=== PATIENT | female | born 1985 | race American Indian/Alaskan Native ===

== ENCOUNTER 2017-06-29 13:25 | Emergency (ER) | payer SELFPAY ==
[2017-06-29 14:09] LABS: Basophils % (Auto) 0.7 % (0.0-1.8); Eosinophils % (Auto) 4.5 % (0.0-4.3); Hematocrit 40.1 % (30.3-42.9); Hemoglobin 12.5 gm/dl (10.1-14.3); Mean Corpuscular HGB Conc 31 % (30-34); Mean Corpuscular Volume 75 fl (79-97); Platelet Count 347 K/mm3 (140-440); Red Blood Count 5.32 M/mm3 (3.65-5.03); Red Cell Distribution Width 14.4 % (13.2-15.2); White Blood Count 8.1 K/mm3 (4.5-11.0)
[2017-06-29 14:11] LABS: Mean Corpuscular Hemoglobin 23 pg (28-32)
[2017-06-29 14:27] LABS: Bilirubin,Urine NEG (Negative); Blood,Urine LG (Negative); Ketones,Urine NEG (Negative); Leukocyte Esterase,Urine TR (Negative); Mucus,Urine FEW /HPF; Nitrite,Urine NEG (Negative); Protein,Urine <15 mg/dL mg/dL (Negative)
[2017-06-29 14:28] LABS: Anion Gap 17 mmol/L; BUN/Creatinine Ratio 14; Blood Urea Nitrogen 7 mg/dL (7-17); Calcium 9.2 mg/dL (8.4-10.2); Carbon Dioxide 25 mmol/L (22-30); Chloride 102.4 mmol/L (98-107); Glucose 81 mg/dL (65-100); Potassium 4.7 mmol/L (3.6-5.0); Sodium 140 mmol/L (137-145)
--- NOTE | 2017-06-30 01:46 | Emergency Department Report ---
ED Female HPI - General Chief complaint: Vaginal Bleeding Stated complaint: ABD PAIN Time Seen by Provider: 06/30/17 00:40 Source: patient Mode of arrival: Ambulatory Limitations: No Limitations - History of Present Illness Initial comments: 32 YO FEMALE WHO HAD IUD RING REMOVED IN AUGUST AND THEN BEGAN BLEEDING FOR TWO WEEKS. SHE BLED FOR 2 WEEKS AND THEN STOPPED FOR 2 WEEKS AND THIS PATTERN OF BLEEDING FOR 2 WEEKS AND STOPPING FOR 2 WEEKS LASTED UNTIL 3 MONTHS AGO WHEN SHE STARTED BLEEDING EVERY DAY. SHE IS HERE TODAY WITH C/O 3 MONTHS OF VAGINAL BLEEDING AND USING 6 PADS PER DAY.. SHE IS . Complaint: vaginal bleeding -: Gradual, year(s) (1) Quality: cramping Consistency: constant Improves with: none Worsens with: none Are you Now?: No - Related Data Sexually active: Yes Previous Rx's Medication Instructions Recorded Last Taken Type Acetaminophen/Codeine [Tylenol #3] 1 tab PO Q6H PRN #15 tab 12/16/14 Unknown Rx Cephalexin [Keflex] 250 mg PO Q6H #40 capsule 12/16/14 Unknown Rx Ibuprofen [Motrin] 800 mg PO Q8H PRN #30 tablet 12/16/14 Unknown Rx Allergies Allergy/AdvReac Type Severity Reaction Status Date / Time No Known Allergies Allergy Verified 12/16/14 13:23 ED Review of Systems ROS: Stated complaint: ABD PAIN Other details as noted in HPI Constitutional: denies: chills, fever Eyes: denies: eye pain, eye discharge, vision change ENT: denies: ear pain, throat pain Respiratory: denies: cough, shortness of breath, wheezing Cardiovascular: denies: chest pain, palpitations Endocrine: no symptoms reported Gastrointestinal: denies: abdominal pain, nausea, diarrhea Genitourinary: denies: urgency, dysuria, discharge Musculoskeletal: denies: back pain, joint swelling, arthralgia Skin: denies: rash, lesions Neurological: denies: headache, weakness, paresthesias Psychiatric: denies: anxiety, depression Hematological/Lymphatic: denies: easy bleeding, easy bruising ED Past Medical Hx - Past Medical History Previous Medical History?: Yes Additional medical history: ovarian cyst,IUD AND REMOVAL IUD, - Family History Family history: hypertension - Social History Smoking Status: Current Every Day Smoker Substance Use Type: None - Medications Home Medications: Home Medications Medication Instructions Recorded Confirmed Last Taken Type Acetaminophen/Codeine [Tylenol #3] 1 tab PO Q6H PRN #15 tab 12/16/14 Unknown Rx Cephalexin [Keflex] 250 mg PO Q6H #40 capsule 12/16/14 Unknown Rx Ibuprofen [Motrin] 800 mg PO Q8H PRN #30 tablet 12/16/14 Unknown Rx ED Physical Exam - General Limitations: No Limitations General appearance: alert, in no apparent distress - Head Head exam: Present: atraumatic, normocephalic - Eye Eye exam: Present: normal appearance, EOMI - ENT ENT exam: Present: mucous membranes moist - Neck Neck exam: Present: normal inspection, full ROM - Respiratory Respiratory exam: Present: normal lung sounds bilaterally. Absent: respiratory distress, wheezes, rales - Cardiovascular Cardiovascular Exam: Present: regular rate, normal rhythm. Absent: systolic murmur, diastolic murmur, rubs, gallop - GI/Abdominal GI/Abdominal exam: Present: soft, normal bowel sounds - Rectal Rectal exam: Present: deferred - External exam: Present: normal external exam, other (MALODOROUS) Speculum exam: Present: normal speculum exam, vaginal discharge, vaginal bleeding (SCANT,SCANT) Bi-manual exam: Present: uterine enlargement. Absent: cervical motion tendernes , adnexal tenderness, adnexal mass - Extremities Exam Extremities exam: Present: normal inspection, full ROM - Back Exam Back exam: Present: normal inspection, full ROM - Neurological Exam Neurological exam: Present: alert, oriented X3, CN II-XII intact - Psychiatric Psychiatric exam: Present: normal affect, normal mood - Skin Skin exam: Present: warm, dry, intact, normal color. Absent: rash ED Course Vital Signs 06/29/17 06/30/17 06/30/17 13:32 00:28 00:30 Temperature 99.2 F 97.9 F Pulse Rate 79 72 Respiratory 18 16 16 Rate Blood Pressure 155/110 Blood Pressure 147/101 [Left] O2 Sat by Pulse 99 100 98 Oximetry ED Medical Decision Making - Lab Data Result diagrams: 06/29/17 13:53 06/29/17 13:53 - Radiology Data Radiology results: report reviewed (US: NEGATIVE, NO FIBROIDS) - Medical Decision Making WILL HAVE HER F/U WITH VEGETABLE THINNER. NO VAGINAL HEMORRHAGE. PTS ACCOUNT OF THE EXTENT OF VAGINAL BLEEDING IS INACCURATE Critical care attestation.: If time is entered above; I have spent that time in minutes in the direct care of this critically ill patient, excluding procedure time. ED Disposition Clinical Impression: Dysfunctional uterine bleeding Disposition: TO HOME OR SELFCARE Is pt being admited?: No Does the pt Need Aspirin: No Condition: Stable Instructions: Dysfunctional Uterine Bleeding (ED) Additional Instructions: PLEASE FOLLOW UP WITH DR MCHUGH TO EVALUATE YOU FOR REASONS OF VAGINAL BLEEDING. RETURN TO ER IF BLEEDING INCREASES OTHER FOUNTAIN SEE DR MCHUGH OR YOUR PRIMARY CARE DOCTOR Referrals: PRIMARY CARE, [Primary Care Provider] - 3-5 Days MADONNA MCHUGH MD [Staff Physician] - 3-5 Days Time of Disposition: 03:26
--- NOTE | 2017-06-30 02:11 | Ultrasound Report ---
FINAL REPORT PROCEDURE: US PELVIC COMPLETE TECHNIQUE: Real-time transabdominal sonography in multiple planes of pelvis was performed with image documentation. This examination was performed without Doppler. Vascular abnormalities, including ovarian torsion, will not be detectable without Doppler evaluation. CPT 49094 HISTORY: pain,bleeding COMPARISON: No prior studies are available for comparison. FINDINGS: UTERUS Size: 9.4 x 4.4 x 5.4 cm. Endometrial thickness: 9.4 mm. Orientation: anteverted. Cervix: Normal. Fibroids/masses: None. RIGHT Ovary: 3.8 x 2.6 x 2.7 cm. Appearance: Normal. LEFT Ovary: 3.2 x 2.5 x 2.2 cm. Appearance: Normal. Pelvic fluid: None. Other: None. IMPRESSION: Normal Examination
[2017-06-30 04:08] VITALS: BP 128/90
== END 2017-06-30 04:08 | disposition home or self-care (01) ==
LOC: ED 13:25
DX: N93.8 Other specified abnormal uterine and vaginal bleeding (principal); F17.200 Nicotine dependence, unspecified, uncomplicated
CPT/HCPCS: 36415; 76856; 80048; 81001; 84702; 85025; 86850; 86900; 86901; 87210; 87591; 99284

== ENCOUNTER 2018-12-08 05:32 | Emergency (ER) | payer MEDICAID ==
[2018-12-08] MEDS ORDERED: TORADOL IM ONE (06:09)
[2018-12-08] MEDS ORDERED: DECADRON IM ONE (06:10)
--- NOTE | 2018-12-08 06:48 | Emergency Department Report ---
ED Back Pain/Injury HPI - General Chief Complaint: Extremity Injury, Lower Stated Complaint: BACK TO KNEE PAIN Time Seen by Provider: 12/08/18 06:05 Source: patient Limitations: No Limitations - History of Present Illness Initial Comments: Patient is a 33-year-old -[place] female with no past medical history who presents to the ED with complaint of acute onset persistent non-traumatic low back pain that radiates to the right hip and right thigh posteriorly for the last 3 days. Patient states that the pain is persistent and worse at rest. Patient denies fall, traumatic injury, heavy lifting, numbness and tingling or weakness of lower extremities bilaterally, urinary or bowel incontinence, saddle paresthesia, dizziness, nausea, vomiting, abdominal pain, hematuria, dysuria or urinary frequency and urgency and vaginal bleeding. MD Complaint: back pain -: Sudden, days(s) (3) Similar Symptoms Previously: No Place: home Radiation: buttocks, right leg Severity: severe Severity scale (0 -10): 8 Quality: sharp, aching Consistency: constant Improves With: none Worsens With: movement, walking Context: unknown, other (spontaneous) Associated Symptoms: difficulty walking. denies: confusion, weakness, chest pain, numbness, cough, difficulty urinating, diaphoresis, incontinence, fever/chills, constipation, loss of appetite, nausea/vomiting, seizure, shortness of breath, syncope Treatments Prior to Arrival: NSAIDS - Related Data Previous Rx's Medication Instructions Recorded Last Taken Type Acetaminophen/Codeine [Tylenol #3] 1 tab PO Q6H PRN #15 tab 12/16/14 Unknown Rx Ibuprofen [Motrin] 800 mg PO Q8H PRN #30 tablet 12/16/14 Unknown Rx cephALEXin [Keflex] 250 mg PO Q6H #40 capsule 12/16/14 Unknown Rx Baclofen 20 mg PO Q8H PRN #24 tablet 12/08/18 Unknown Rx Naproxen [Naprosyn] 500 mg PO Q12H #24 tablet 12/08/18 Unknown Rx Prednisone [predniSONE 10 mg 10 mg PO .TAPER #21 tab.ds.pk 12/08/18 Unknown Rx (6-Day Pack, 21 Tabs)] traMADol [Ultram] 50 mg PO Q6HR PRN #15 tablet 12/08/18 Unknown Rx Allergies Allergy/AdvReac Type Severity Reaction Status Date / Time No Known Allergies Allergy Verified 12/16/14 13:23 ED Review of Systems ROS: Stated complaint: BACK TO KNEE PAIN Other details as noted in HPI Comment: All other systems reviewed and negative Constitutional: no symptoms reported, see HPI Eyes: as per HPI. denies: eye pain, eye discharge, vision change ENT: as per HPI. denies: ear pain, throat pain, dental pain, hearing loss Respiratory: no symptoms reported, see HPI. denies: shortness of breath, SOB at rest Cardiovascular: as per HPI. denies: chest pain, palpitations, dyspnea on exertion, edema, syncope, paroxysmal nocturnal dyspnea Endocrine: no symptoms reported, see HPI. denies: excessive sweating, flushing, intolerance to heat, increased hunger, increased thirst, increased urine, unexplained weight gain Gastrointestinal: as per HPI. denies: abdominal pain, nausea, vomiting, diarrhea, constipation, hematemesis Genitourinary: as per HPI. denies: urgency, dysuria, frequency, hematuria Musculoskeletal: as per HPI, back pain, arthralgia. denies: joint swelling, myalgia Skin: as per HPI. denies: rash, lesions, change in color, change in hair/nails Neurological: as per HPI. denies: headache, weakness, numbness, paresthesias Psychiatric: as per HPI. denies: auditory hallucinations, visual hallucina tions, homicidal thoughts Hematological/Lymphatic: as per HPI ED Past Medical Hx - Past Medical History Previous Medical History?: No Additional medical history: ovarian cyst,IUD AND REMOVAL IUD, - Surgical History Past Surgical History?: No - Social History Smoking Status: Current Some Day Smoker - Medications Home Medications: Home Medications Medication Instructions Recorded Confirmed Last Taken Type Acetaminophen/Codeine [Tylenol #3] 1 tab PO Q6H PRN #15 tab 12/16/14 Unknown Rx Ibuprofen [Motrin] 800 mg PO Q8H PRN #30 tablet 12/16/14 Unknown Rx cephALEXin [Keflex] 250 mg PO Q6H #40 capsule 12/16/14 Unknown Rx Baclofen 20 mg PO Q8H PRN #24 tablet 12/08/18 Unknown Rx Naproxen [Naprosyn] 500 mg PO Q12H #24 tablet 12/08/18 Unknown Rx Prednisone [predniSONE 10 mg 10 mg PO .TAPER #21 tab.ds.pk 12/08/18 Unknown Rx (6-Day Pack, 21 Tabs)] traMADol [Ultram] 50 mg PO Q6HR PRN #15 tablet 12/08/18 Unknown Rx ED Physical Exam - General Limitations: No Limitations General appearance: alert, in no apparent distress - Head Head exam: Present: atraumatic, normocephalic, normal inspection - Eye Eye exam: Present: normal appearance, PERRL, EOMI. Absent: scleral icterus, conjunctival injection, nystagmus Pupils: Present: normal accommodation - ENT ENT exam: Present: normal exam, normal orophraynx, mucous membranes moist, TM's normal bilaterally, normal external ear exam - Neck Neck exam: Present: normal inspection, full ROM. Absent: tenderness - Respiratory Respiratory exam: Present: normal lung sounds bilaterally. Absent: respiratory distress, wheezes, rales, chest wall tenderness, accessory muscle use, prolonged expiratory - Cardiovascular Cardiovascular Exam: Present: regular rate, normal rhythm, normal heart sounds - GI/Abdominal GI/Abdominal exam: Present: soft, normal bowel sounds. Absent: distended, tenderness, guarding, hyperactive bowel sounds, hypoactive bowel sounds, organomegaly - Rectal Rectal exam: Present: deferred - Extremities Exam Extremities exam: Present: normal inspection, full ROM, normal capillary refill - Back Exam Back exam: Present: tenderness (palpable lumbosacral paraspinal musculoskeletal tenderness), muscle spasm, paraspinal tenderness. Absent: full ROM, CVA t enderness (R), CVA tenderness (L) - Neurological Exam Neurological exam: Present: alert, oriented X3, CN II-XII intact, normal gait, reflexes normal - Psychiatric Psychiatric exam: Present: normal affect - Skin Skin exam: Present: warm, dry, intact ED Course Vital Signs 12/08/18 12/08/18 12/08/18 05:39 05:44 06:27 Temperature 98.0 F 98.0 F Pulse Rate 81 78 Respiratory 18 18 18 Rate Blood Pressure 163/110 163/110 O2 Sat by Pulse 100 100 Oximetry - Reevaluation(s) Reevaluation #1: 12/08/18 06:48 Patient is alert and oriented 3 and is not in distress but hypertensive. Patient was treated for pain in the ED and on reevaluation, the patient's pain is moderately controlled on medications. Patient discharged home on pain medications and advised to follow up with her primary care physician in 3-5 days for reevaluation. Patient was otherwise return to the ED immediately if symptoms get worse. ED Medical Decision Making - Medical Decision Making Patient is alert and oriented 3 and is not in distress but hypertensive. Patient was treated for pain in the ED and on reevaluation, the patient's pain is moderately controlled on medications. Patient discharged home on pain medications and advised to follow up with her primary care physician in 3-5 days for reevaluation. Patient was otherwise return to the ED immediately if symptoms get worse. On reevaluation of her blood pressure, it improved to 144/108 and patient advised to follow-up with her primary care physician to recheck her blood pressure.. - Differential Diagnosis acute low back pain with sciatica, Lumbar radiculopathy, muscle spasm Critical care attestation.: If time is entered above; I have spent that time in minutes in the direct care of this critically ill patient, excluding procedure time. ED Disposition Clinical Impression: Spasm of muscle of lower back Acute low back pain with right-sided sciatica Qualifiers: Back pain laterality: right Qualified Code(s): M54.41 - Lumbago with sciatica, right side Disposition: TO HOME OR SELFCARE Is pt being admited?: No Does the pt Need Aspirin: No Condition: Stable Instructions: Sciatica (ED), Muscle Spasm (ED), Acute Low Back Pain (ED) Additional Instructions: Follow-up with your primary care physician in 3-5 days for reevaluation and for blood pressure recheck. Prescriptions: Baclofen 20 mg PO Q8H PRN #24 tablet PRN Reason: Spasms Naproxen [Naprosyn] 500 mg PO Q12H #24 tablet Prednisone [predniSONE 10 mg (6-Day Pack, 21 Tabs)] 10 mg PO .TAPER #21 tab.ds.pk traMADol [Ultram] 50 mg PO Q6HR PRN #15 tablet PRN Reason: Pain Referrals: [facility] [Outside] - 3-5 Days Time of Disposition: 06:52 Print Language: CYMRO
[2018-12-08 06:54] VITALS: BP 144/108
== END 2018-12-08 07:00 | disposition home or self-care (01) ==
LOC: ED 05:32
DX: M62.830 Muscle spasm of back (principal); M54.41 Lumbago with sciatica, right side; F17.200 Nicotine dependence, unspecified, uncomplicated; Z79.899 Other long term (current) drug therapy
CPT/HCPCS: 96372; 99282; J1100; J1885

== ENCOUNTER 2019-06-03 19:48 | Emergency (ER) | payer MEDICAID, OTHER ==
[2019-06-03 20:56] VITALS: BP 133/91
[2019-06-03] MEDS ORDERED: IBUPROFEN 800 MG TAB PO ONE (22:05)
[2019-06-03] MEDS ORDERED: HYDROcodone/ACETAMINOPHEN 5-325 MG TAB PO ONE (22:05)
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
== END 2019-06-03 23:44 | disposition home or self-care (01) ==
LOC: ED 19:48
DX: S39.012A Strain of muscle, fascia and tendon of lower back, initial encounter (principal); M54.16 Radiculopathy, lumbar region; I10 Essential (primary) hypertension; F17.210 Nicotine dependence, cigarettes, uncomplicated; X58.XXXA Exposure to other specified factors, initial encounter; Y93.89 Activity, other specified; Y92.89 Other specified places as the place of occurrence of the external cause; Y99.8 Other external cause status
CPT/HCPCS: 72100